=== PATIENT | female | born 1945 | race Caucasian/White ===

== ENCOUNTER → 2024-05-06 12:43 | Outpatient (REF) | payer OTHER, SELFPAY | LOC: WDC 12:43 | PROVIDERS: ATTENDING PHYSICIAN Emergency Medicine | DX: Z12.31 Encounter for screening mammogram for malignant neoplasm of breast (principal) | CPT/HCPCS: 77063; 77067 ==

== ENCOUNTER → 2024-05-19 12:57 | Outpatient (REF) | payer OTHER, SELFPAY | LOC: RAD 12:57 | PROVIDERS: ATTENDING PHYSICIAN Emergency Medicine | DX: R22.1 Localized swelling, mass and lump, neck (principal) | CPT/HCPCS: 76536 ==

== ENCOUNTER 2024-05-26 03:39 | Day surgery (SDC) | payer OTHER, SELFPAY ==
[2024-05-25 20:25] VITALS: BP 164/72
[2024-05-25 20:47] LABS: % Basophils 0.5 % (0-2); % Eosinophils 1.4 % (0-6); % Immature Granulocytes 0.3 % (0-0.5); % Lymphocytes 23.1 % (20.5-51.1); % Monocytes 6.4 % (1.7-9.3); % Neutrophils 68.3 % (42.2-75.2); Absolute Basophils 0.1 10^3/uL (0-0.2); Absolute Eosinophils 0.1 10^3/uL (0-0.7); Absolute Lymphocytes 2.2 10^3/uL (1.2-3.4); Absolute Monocytes 0.6 10^3/uL (0.1-0.6); Absolute Neutrophils 6.5 10^3/uL (1.4-6.5); Hematocrit 28.6 % (37.0-47.0); Hemoglobin 10.2 g/dL (12.0-16.0); Mean Corp Hgb Conc. 35.7 g/dL (33.0-37.0); Mean Corpuscular Hgb 31.1 pg (27.0-31.0); Mean Corpuscular Volume 87.2 fL (81.0-99.0); Nucleated Red Blood Cells % 0 %; Platelet Count 308 10^3/uL (130-400); Red Blood Cell Count 3.28 10^6/uL (4.20-5.40); Red Cell Dist. Width 12.3 % (11.5-14.5); White Blood Cell Count 9.5 10^3/uL (4.8-10.8)
[2024-05-25 21:16] LABS: ALT (SGPT) 21 U/L (0-35); AST (SGOT) 24 U/L (14-36); Albumin 4.9 g/dl (3.5-5.0); Alkaline Phosphatase 53 U/L (38-126); Blood Urea Nitrogen 24 mg/dl (7-17); Calcium 9.9 mg/dl (8.4-10.2); Carbon Dioxide 22 mmol/L (22-30); Chloride 97 mmol/L (98-107); Glucose 142 mg/dl (70-99); Potassium 3.8 mmol/L (3.5-5.1); Sodium 135 mmol/L (135-145); Total Bilirubin 0.2 mg/dl (0.2-1.3); Total Protein 7.7 g/dl (6.3-8.2); eGFR > 60.00
[2024-05-25 21:18] LABS: Lipase 391 U/L (23-300)
[2024-05-25 21:29] LABS: Troponin I < 0.012 ng/ml
[2024-05-25 22:36] VITALS: BP 201/74
[2024-05-25 22:43] VITALS: BMI 23.4
[2024-05-25 23:18] VITALS: BP 202/99
[2024-05-25] MEDS: ZOFRAN 4 MG IV (23:34)
[2024-05-25] MEDS: DILAUDID 0.5 MG IV (23:38)
--- NOTE | 2024-05-25 23:46 | ED.GENMED ---
History of Present Illness
General
Chief Complaint: Abdominal Symptoms
Source: patient
Exam Limitations: none
Time Seen by Provider: 05/25/24 22:40
History of Present Illness
History of Present Illness:
This is a 78 year old female that comes in with c/.o abd pain. States that she had pain in the chest and then down into her abd. States that that this started today. States that she also had pain up into the right blade the past day or 2. States
that this comes and goes. States that she is occasionally SOB. Denies any fever, chills, nausea, vomiting, diarrhea, headache, dizziness, urinary burning.
Past History
Past History
ED Past Medical History: Cancer (Skin Cancer), GERD, HTN, Hypercholesterolemia, NIDDM, Hypothyroidism and Other (Chronic kidney disease, Anemia. )
ED Past Surgical History: Appendectomy, Orthopedic (Right carpal tunnel with joint replacement, Left carpal tunnel, ) and Tonsilectomy
Social History
Tobacco: Former smoker
Alcohol: Occasional
Personal:
Living: with family
Review of Systems
Review of Systems
All Other Systems: ROS reviewed and negative except as documented in HPI and ROS
Constitutional: Reports no symptoms; Denies fever or chills
EENT: Reports no symptoms
Respiratory: Reports trouble breathing (occasional); Denies cough
Cardiac: Reports chest pain (abd pain that goes up into her chest)
ABD/GI: Reports abdominal pain; Denies nausea, vomiting or diarrhea
: Reports no symptoms; Denies dysuria, frequency or urgency
Musculoskeletal: Reports no symptoms
Skin: Reports no symptoms
Neurological: Reports no symptoms; Denies dizzy or headache
Psychiatric: Reports no symptoms
Phy Exam
General Physical Exam
General Presentation: mild distress
General age: appears stated age
General Skin: warm and dry
General Habitus: elderly
General Mental: alert
General Hydration: dry mucous membranes
ENT Exam
ENT Exam: TM's normal, pharynx normal and neck supple
Eye Exam
Eye Exam: EOMI
Cardiovascular Exam
Cardiovascular Exam: regular rate/rhythm, no edema, no murmur and normal peripheral pulses
Pulmonary Exam
Pulmonary Exam: lungs clear, no respiratory distress, no rales, chest non tender, no crackles, no rhonchi, no wheezing and no cough
Gastrointestinal Exam
Gastrointestinal Exam: normal bowel sounds, soft, no organomegaly, no pulsatile mass, non distended and tender (Epigastric and right sided upper abd tenderness with palpation)
Musculoskeletal Exam
Musculoskeletal Exam: full ROM and no edema
Skin Exam
Skin Exam: normal color, warm/dry, no rash and no petechia
Psychiatric Exam
Psychiatric Exam: normal mood/affect
Course
Orders/Labs/Results
Orders:
Orders
05/25/24 20:18
Electrocardiogram (*1) Urgent
Reason for Study: Chest Pain
EKG- Treatment ONCE
05/25/24 20:35
Alcohol Urgent
Complete Blood Count/With Diff Urgent
Comprehensive Metabolic Panel Urgent
Lipase Urgent
Troponin I Urgent
05/25/24 23:24
HYDROmorphone [Dilaudid] 0.5 mg .ROUTE .STK-MED ONE
Ondansetron Injectable [Zofran] 4 mg .ROUTE .STK-MED ONE
05/25/24 23:33
Ondansetron Injectable [Zofran] 4 mg IV NOW STA
05/25/24 23:37
HYDROmorphone [Dilaudid] 0.5 mg IV NOW STA
05/25/24 23:48
Pantoprazole [Protonix IV] 40 mg IV NOW STA
05/25/24 23:51
Add On- LAB Urgent
Tests Added?: alcohol
05/26/24 00:00
US Abdomen Complete/Upper Urgent
Reason For Exam: Epigastric and right upper quardent pain
Abnormal Lab Results
05/25/24
20:35
RBC 3.28 L 10^6/uL
(4.20-5.40)
Hgb 10.2 L g/dL
(12.0-16.0)
Hct 28.6 L %
(37.0-47.0)
MCH 31.1 H pg
(27.0-31.0)
Chloride 97 L mmol/L
(98-107)
BUN 24 H mg/dl
(7-17)
Glucose 142 H mg/dl
(70-99)
Lipase 391 H U/L
(23-300)
05/25/24 20:35
05/25/24 20:35
H/H low. Chloride slightly low. Dehydration. Hyperglycemia. Lipase elevation (early pancreatitis) Troponin<0.012, Lipase 391, alcohol negative
Vital Signs
Initial and Last Documented VS:
Initial Vital Signs
Temp Pulse Resp BP Pulse Ox
97.8 F 84 20 164/72 97
05/25/24 20:25 05/25/24 20:25 05/25/24 20:25 05/25/24 20:25 05/25/24 20:25
Last Documented Vital Signs
Temp Pulse Resp BP Pulse Ox
97.8 F 83 17 118/102 92
05/25/24 20:25 05/26/24 01:30 05/26/24 01:30 05/26/24 00:30 05/26/24 01:30
MDM/Problems Addressed
Differential Diagnosis Includes:
Pancreatitis, Gallbladder disease
MDM/Problems Addressed:
This is a 78 year old female that comes in with c/o upper abd pain. States that this started today and over the past 1-2 days she also has had pain in her right shoulder blade.
Will get labs, US and medicate for pain.
[place] [facility] [place] States that she still has pain but the pain medication did help some. Reviewed US with patient. Patient remains very tender with palpation. Will admit for abd pain, early pancreatitis.
Chronic conditions affecting care: DM
Acute Exacerbation and/or Progression of Chronic Illness: DM
*Radiology
Radiology exam reviewed: radiology read reviewed (US night hawk- Moderately distended gallbladder without gallstones or sludge. Nonspecific mild gallbladder wall thickening of 4mm. Negative Norman's sign. NO biliary ductal dilation. Liver and
pancreas with course echotexture. No focal lesion. No free fluid. Left kidney with known peripelvic cysts ) and other (US cont- although superimposed hydronephrosis cannot be excluded. Right kidney without hydronephrosis. )
*Pulse Oximetry
Patient hypoxic: no
*EKG
Interpreted by ED Provider?: Yes
Heart Rate: 85
Rate: normal
Rhythm: sinus
Sweeny: normal axis
Interval: normal interval
QRS Pattern: normal QRS
Ischemia: no ischemia
*Home Visitor Interpretation
Rate: normal
Heart Rate: 92
Rhythm: sinus
*Critical Care Note
Total Time (30-74mins, 75-104mins- exclusive of procedures): Not Applicable
ED Attending Note
-
Portions of this chart may have been created with voice recognition software.� Occasional wrong word or��sound alike� substitutions may have occurred due to the inherent limitations of voice recognition software.
Discharge Plan
Departure
Patient Disposition: Admit
Date of Disposition: 05/26/24
Time of Disposition: 02:21
Admit to: Med/Surg
Presentation/result/management discussed w/ accepting MD/DO: Hospitalist
Patient with high blood pressure during this ER visit?: Yes
Condition: Good
Covid-19: Not Applicable
Discharge Problem:
Abdominal pain, Pancreatitis
Prescriptions:
No Action
Vitamin D3
1 tab PO .4XPER WEEK
Rx Instructions:
doesn't know mg
atorvastatin
1 tab PO HS
Rx Instructions:
doesn't know mg
levothyroxine
1 tab PO DAILY
Rx Instructions:
doesn't know mg
lisinopril
1 tab PO DAILY
Rx Instructions:
doesn't know mg
metformin
1 tab PO DAILY
Rx Instructions:
doesn't know mg
omeprazole
1 tab PO DAILY
Rx Instructions:
doesn't know mg
sertraline
1 tab PO DAILY
Rx Instructions:
doesn't know mg
vitamin S77-apttx acid
1 cap PO DAILY
Referrals:
Jonelle Sullivan MD [Family Provider] -
Interventions
Interventions:
*Risk Screen - Suicide Last Done: 05/25/24 20:22
*General Assessment Last Done: 05/25/24 22:39
*Neglect/Abuse Screening Last Done: 05/25/24 20:22
ED- Fall Risk Assessment Last Done: 05/25/24 22:39
GT-Qaqthz-Qbapyzerze Assessment Last Done: 05/25/24 23:15
Discharge Date and Time
Print Language: LATVIAN
[2024-05-26] VITALS (19 sets, daily range): BP systolic 99–168; BP diastolic 56–107; BMI 23.8
[2024-05-26] MEDS: PROTONIX IV 40 MG IV ×2 (00:35→07:41)
[2024-05-26 01:05] LABS: Alcohol None Detected
--- NOTE | 2024-05-26 03:06 | HPS.HSE ---
Family Physician
-
Family Physician: Jonelle Sullivan MD
Chief Complaint
-
Abd Pain
History of Present Illness
Patient is an 78y F with PMH significant for hypertension, DM-II and CKD who presents to ED complaining of abdominal pain. Patient states that she has been having R shoulder pain / discomfort off-and-on for the past week or so. Today she
developed epigastric discomfort around 3 PM. She denies any associated N/V, diaphoresis, fevers / chills, etc. No changes in bowels, bloody stools, etc.
Patient denies any prior history of similar symptoms.
Patient states that the pain is in the epigastric area and radiates to the R. Pain also radiates through to the back.
Medical History
Past Medical History
Past Medical History: Reports Other
Additional Past Medical History:
Hypertension
DM-II
CKD III
Anemia of Chronic Disease
Anxiety / Depression
GERD
Hypothyroidism
Past Surgical History: Reports Other
Additional Past Surgical History:
Laminectomy
Right Hand Surgery
Trigger Finger Repairs
Social History
Tobacco: Former Smoker (Quit smoking about 10 years ago. > 40 pack years total use.)
Alcohol: Occasional (About 5-6 drinks per week on average.)
Drug: None
Family History
Family History: Not pertinent
Allergies / Home Medications
Allergies reflects when Allergies were last updated in [facility].
Home Medications with original date entered in [facility]
Allergy/Medication List:
Allergies
Allergy/AdvReac Type Severity Reaction Status Date / Time
NKA - No Known Allergies Allergy - Uncoded 05/25/24 20:23
Home Medications
Vitamin D3 1 tab PO .4XPER WEEK 05/26/24
atorvastatin 1 tab PO HS 05/26/24
levothyroxine 1 tab PO DAILY 05/26/24
lisinopril 1 tab PO DAILY 05/26/24
metformin 1 tab PO DAILY 05/26/24
omeprazole 1 tab PO DAILY 05/26/24
sertraline 1 tab PO DAILY 05/26/24
vitamin P81-uolfq acid 1 cap PO DAILY 05/26/24
Needs formal med rec as patient does not know doses.
Review of Systems
-
History Source: Patient
A 12 point ROS was completed and negative except as noted: Yes
Constitutional: Denies Fever or Chills
EENT: Denies Sore Throat
Respiratory: Denies Cough or Trouble Breathing
Cardiac: Denies Chest Pain or Palpitations
Abdomen/GI: Reports Abdominal Pain; Denies Nausea, Vomiting, Diarrhea, Constipated, Bloody Stools or Black Stools
: Denies Dysuria, Frequency or Flank Pain
Musculoskeletal: Reports Joint Pain (R Shoulder Pain); Denies Edema
Neurological: Denies Dizzy or Headache
Physical Exam
Vital Signs
Vital Signs
Temp Pulse Resp BP Pulse Ox
97.8 F 82 16 167/71 94
05/25/24 20:25 05/26/24 02:45 05/26/24 02:45 05/26/24 02:30 05/26/24 02:45
Physical Exam
General: Other (78y F in no acute distress.)
HEENT: Moist mucous membranes and PERRLA
Respiratory: Clear; No Wheezes, Rales or Rhonchi
Cardiac: S1/S2, Regular Rhythm and Murmur (II/ DONNA)
GI: Other (Abdomen is soft, Pos epigastric and RUQ tenderness with voluntary guarding. Pos BS.)
Musculoskeletal: No Clubbing, No Cyanosis and No Edema
Neuro: AO x 3
Laboratory Results
-
05/25/24 20:35
05/25/24 20:35
Laboratory Results
Total Bilirubin 0.2 mg/dl (0.2-1.3) 05/25/24 20:35
AST 24 U/L (14-36) 05/25/24 20:35
ALT 21 U/L (0-35) 05/25/24 20:35
Alkaline Phosphatase 53 U/L (38-126) 05/25/24 20:35
Troponin I < 0.012 ng/ml 05/25/24 20:35
Lipase 391 U/L (23-300) H 05/25/24 20:35
Impression/Plan
-
A/P: Patient is an 78y F with PMH significant for HTN, DM-II and CKD who presents to ED complaining of abdominal pain.
Abdominal Pain
- Observe overnight for further evaluation and treatment.
- Mild elevation in lipase - without N/V, etc.
- ? early or mild pancreatitis - does drink most days but alcohol level in ED is undetectable.
- Given R shoulder discomfort and wall thickening / distention of GB noted on US - will check HIDA to rule out cholecystitis.
- NPO, IVF, supportive care.
- Follow for any new / worsening symptoms.
- Consider GI v Surgical evaluation depending on clinical course / results of HIDA scan.
Benign Hypertension
- Stable. Holding meds acutely.
- Resume usual regimen after formal med rec.
DM-II
- Hold PO metformin acutely.
- Follow glucose and cover with SSI as needed.
- Update A1C.
CKD III
Anemia of CKD
- Stable. Renal function unremarkable.
- Follow H&H / labs for any changes.
GERD
- IV PPI for now.
Hypothyroidism
- Resume T4 supplementation once dosing has been confirmed.
DVT Prophylaxis: SCDs
Code Status: Full
[2024-05-26] MEDS: LR 1000 IV ×2 (04:20→19:09)
[2024-05-26] MEDS: DILAUDID 0.5 MG IV (04:54)
[2024-05-26] MEDS: ZOFRAN 4 MG IV (05:09)
[2024-05-26 05:17] LABS: Hematocrit 27.9 % (37.0-47.0); Hemoglobin 9.9 g/dL (12.0-16.0); Mean Corp Hgb Conc. 35.5 g/dL (33.0-37.0); Mean Corpuscular Hgb 30.8 pg (27.0-31.0); Mean Corpuscular Volume 86.9 fL (81.0-99.0); Mean Platelet Volume 8.1 fL (7.4-10.4); Platelet Count 303 10^3/uL (130-400); Red Blood Cell Count 3.21 10^6/uL (4.20-5.40); Red Cell Dist. Width 12.2 % (11.5-14.5); White Blood Cell Count 12.4 10^3/uL (4.8-10.8)
[2024-05-26 05:44] LABS: ALT (SGPT) 20 U/L (0-35); AST (SGOT) 24 U/L (14-36); Albumin 4.6 g/dl (3.5-5.0); Alkaline Phosphatase 49 U/L (38-126); Blood Urea Nitrogen 23 mg/dl (7-17); Calcium 9.7 mg/dl (8.4-10.2); Carbon Dioxide 21 mmol/L (22-30); Chloride 98 mmol/L (98-107); Direct Bilirubin 0.1 mg/dl (0.0-0.4); Estimated Creatinine Clearance 46 ml/min; Glucose 132 mg/dl (70-99); Potassium 4.2 mmol/L (3.5-5.1); Sodium 134 mmol/L (135-145); Total Bilirubin 0.3 mg/dl (0.2-1.3); Total Protein 7.4 g/dl (6.3-8.2); eGFR > 60.00
[2024-05-26] MEDS: NSS (PRESERVATIVE FREE) 10 ML IV (07:43)
[2024-05-26 10:56] LABS: Glycohemoglobin (HgbA1c) 5.8 % (4.0-5.6)
--- NOTE | 2024-05-26 11:59 | PTCARENOTE ---
1155 Called to Nuc med to give Morphine to this patient. Order confirmed, patient identified, allergies confirmed. VS pre BP 143/72 P 75 R 16 Pox 94% RA. Mso4 2mg given IV @ 1158. Patient denies complaints. VS @ 1200 BP 146/72 P 77 R 14 Pox 95%
room air. Patient in the care of nuclear medicine staff
[2024-05-26 13:00] LABS: Glucose - Point of Care 118 mg/dl (70-99)
[2024-05-26] MEDS: ASPIR LOW (ENTERIC COATED) 81 MG PO (13:23)
--- NOTE | 2024-05-26 13:43 | W.PN.HOSP.TC ---
Today's Communication/Plan
-
IV abx, IVF
Surgery consulted
F/u cultures
Assessment / Plan
Assessment / Plan
Physical Exam
General: Other (78y F in no acute distress.)
HEENT: Moist mucous membranes and PERRLA
Respiratory: Clear; No Wheezes, Rales or Rhonchi
Cardiac: S1/S2, Regular Rhythm and Murmur (II/ DONNA)
GI: Other (Abdomen is soft, Pos epigastric and RUQ tenderness with voluntary guarding. Pos BS.)
Musculoskeletal: No Clubbing, No Cyanosis and No Edema
Neuro: AO x 3
A/P: Patient is an 78y F with PMH significant for HTN, DM-II and CKD who presents to ED complaining of abdominal pain.
Abdominal Pain
Acute cholecystitis
Sepsis (Elevated WBC, RR, Pulse, source)
-HIDA scan positive
� Initiate antibiotics
- NPO, IVF, supportive care.
� Surgery consulted
Benign Hypertension
- Stable. Holding meds acutely.
Hyponatremia
� Continue to monitor
DM-II
- Hold PO metformin acutely.
- Follow glucose and cover with SSI as needed.
- Update A1C.
CKD III
Anemia of CKD
- Stable. Renal function unremarkable.
- Follow H&H / labs for any changes.
GERD
- IV PPI for now.
Hypothyroidism
- Resume T4 supplementation
DVT Prophylaxis: HSQ
Code Status: Full
Anticipated Discharge: > 48 hours
Subjective/Interval History
-
Date of Service: May 26, 2024
She will have abdominal pain
Objective Data
-
Labs:
Laboratory Results
05/26/24 05/26/24
05:01 05:02
WBC 12.4 H
Hgb 9.9 L
Hct 27.9 L
Plt Count 303
Sodium 134 L
Potassium 4.2
Chloride 98
Carbon Dioxide 21 L
BUN 23 H
Creatinine 0.7
Glucose 132 H
Calcium 9.7
Total Bilirubin 0.3
AST 24
ALT 20
Alkaline Phosphatase 49
Vital Signs:
Vital Signs
Temp Pulse Resp BP Pulse Ox
98.2 F 77 16 138/59 95
05/26/24 07:44 05/26/24 07:44 05/26/24 07:44 05/26/24 07:44 05/26/24 07:44
Review of Systems
-
History Source: Patient
All other systems: Not reviewed unless documented
--- NOTE | 2024-05-26 14:57 | CON.GS ---
Consultation
-
Requesting Provider: Du
Performing Provider: Keira
Reason for Consultation: Abd pain
Medical History
-
Chief Complaint: Abd pain
History of Present Illness:
78F p/w acute onset upper abdominal pain that began yesterday about 3PM after grocery shopping. Denies eating anything unusual over the past few days. The ab pain was preceded by intermittent mild right shoulder pain. The pain was initially in the
upper abdomen and then shifted to the lower abdomen. She notes it seems to radiate to her right side and intermittently to her back. She denies f/c/n/v. Denies changes to urine or stool. Never had this pain before. Presently reports her pain has
improved significantly and she hasn't required pain medicine since yesterday. She denies pain during the HIDA scan.
Past Medical History
Past Medical History: Other (Hypertension DM-II CKD III Anemia of Chronic Disease Anxiety / Depression GERD Hypothyroidism)
Past Surgical History: Other (Laminectomy Right Hand Surgery Trigger Finger Repairs)
Social History
Tobacco: Non-Smoker
Alcohol: Occasional
Drug: None
Personal:
Living: With Family
Family History
Family History: Reviewed & Noncontributory
Allergies / Home Medications
Allergy/AdvReac Type Severity Reaction Status Date / Time
No Known Allergies Allergy Unverified 05/26/24 13:28
�Medication �Instructions �Recorded �Confirmed �Type
alprazolam 0.5 mg tablet (Xanax) 0.5 mg PO HS anxiety/sleep 05/26/24 05/26/24 History
aspirin 81 mg tablet,delayed 81 mg PO DAILY Blood Clot 05/26/24 05/26/24 History
release Prevention/Tx
atorvastatin 40 mg tablet (Lipitor) 40 mg PO QPM High Cholesterol 05/26/24 05/26/24 History
cholecalciferol (vitamin D3) 25 25 mcg PO DAILY Supplement 05/26/24 05/26/24 History
mcg (1,000 unit) tablet (Vitamin
D3)
cyanocobalamin (vitamin B-12) 1,000 mcg PO DAILY Supplement 05/26/24 05/26/24 History
1,000 mcg tablet
folic acid 1 mg tablet 1 mg PO DAILY Supplement 05/26/24 05/26/24 History
levothyroxine 150 mcg tablet 150 mcg PO SUSA Thyroid 05/26/24 05/26/24 History
(Synthroid)
levothyroxine 75 mcg tablet 75 mcg PO MOTUWETHFR 05/26/24 05/26/24 History
(Synthroid)
lisinopril 10 1 tab PO DAILY Blood Pressure 05/26/24 05/26/24 History
mg-hydrochlorothiazide 12.5 mg
tablet
metformin 500 mg tablet 500 mg PO QPM Diabetes 05/26/24 05/26/24 History
omeprazole 20 mg capsule,delayed 20 mg PO DAILY Gastrointestinal 05/26/24 05/26/24 History
release Issue
sertraline 50 mg tablet 50 mg PO DAILY depression/anxiety 05/26/24 05/26/24 History
Review of Systems
-
A 10 point review of systems was completed, and was negative except as per HPI.
Physical Exam
Vital Signs
Temp Pulse Resp BP Pulse Ox
98.2 F 77 20 138/59 93
05/26/24 07:44 05/26/24 14:00 05/26/24 14:00 05/26/24 07:44 05/26/24 14:00
05/25/24 05/26/24 05/27/24
06:59 06:59 06:59
Actual Weight 54.3 kg
Body Mass Index (BMI) 23.4
Lab Results
05/26/24 05:01
05/26/24 05:02
WBC 12.4 10^3/uL (4.8-10.8) H 05/26/24 05:01
Hgb 9.9 g/dL (12.0-16.0) L 05/26/24 05:01
Hct 27.9 % (37.0-47.0) L 05/26/24 05:01
Plt Count 303 10^3/uL (130-400) 05/26/24 05:01
Abs Immat Gran (auto) 0.0 10^3/uL (0-0.05) 05/25/24 20:35
Neutrophils % 68.3 % (42.2-75.2) 05/25/24 20:35
Physical Exam
General: Well Developed, Well Nourished, No Apparent Distress and Other (non-toxic)
HEENT: Normocephalic and Anicteric
GI: Soft, Non Distended and Tender (mild ttp to epigastrium and less to the RUQ)
Skin: Warm and Dry
Neuro: AO x 3
Psych: Calm
Data Reviewed
-
Ultrasound: Image Personally Visualized and interpreted, Report Reviewed by me, Discussed with Physician, Discussed with Patient and Discussed with Family
Medical Tests (Nuc Med, Echo etc): Image Personally Visualized and interpreted, Report Reviewed by me, Discussed with Physician, Discussed with Patient and Discussed with Family
Labs: Labs Reviewed by me, Discussed with Physician, Discussed with Patient and Discussed with Family
Old Records: Reviewed
Assessment / Plan
-
78F with abdominal pain suggestive of biliary origin
Possible biliary pancreatitis (though no clear evidence of stones on US and lipase only mildly elevated)
Possible acute or acute on chronic cholecystitis (though no stones on US, negative sono Norman, normal LFTs, no GBWT nor PCF nor ductal dilation on US, the HIDA was notable for non-vis of GB)
An ambulatory independent patient living at home is unlikely to develop acalculous cholecystitis
Most likely there are gallstones/sludge that are simply not well visualized on US
Labs notable for mild leukocytosis trended up from yesterday
Clinically reports improvement and having less pain today, AFVSS
Plan:
Agree with Hospitalist admission for obs
Would cont NPO/IVF for now to allow bowel rest, sips and chips OK
Agree with empiric abx
Serial abd exams
Consider cross sectional imaging tomorrow if no improvement
She may benefit from CCY or IR drain, pending clinical course
Will follow
[2024-05-26] MEDS: ZOSYN 100 IV ×2 (15:00→21:35)
--- NOTE | 2024-05-26 16:30 | CM ---
Met with patient at the bedside in the ED, Bed 31; initial assessment completed
WEBB form explained and signed @ 1623
Pharmacy verified: [facility] @ [address] [facility]
Patient and Spouse live in a [place] w/basement; 2 steps to enter; 13 steps down to Basement; bath has walk-in shower w/grab bar; has a shower chair if needed
PLOF: reports she is independent with ambulation, stairs, and ADLs; drives; retired
NO SNF or Home Health utilization history
will transport if she is discharged to Home
Surgery consulted; DC plan to be determined pending hospital course
[2024-05-26] MEDS: HEPARIN 5000 UNITS SC ×2 (16:36→23:02)
[2024-05-26 18:47] LABS: Glucose - Point of Care 119 mg/dl (70-99)
--- NOTE | 2024-05-26 19:00 | PTCARENOTE ---
pt admitted from ED AOx3. endorses 10, abd pain. LCTA B/L on RA. abd soft, tender to palp. +bs 4 cont b&b skin sdki. no edema +pp. cb in reach
[2024-05-26] MEDS: TYLENOL 650 MG PO (20:46)
[2024-05-26] MEDS: PEPCID 20 MG PO (21:35)
[2024-05-26 22:23] LABS: Glucose - Point of Care 128 mg/dl (70-99)
[2024-05-26] MEDS: XANAX 0.5 MG PO (23:02)
[2024-05-27] VITALS (14 sets, daily range): BP systolic 127–181; BP diastolic 59–90; BMI 24.1
[2024-05-27] MEDS: ZOSYN 100 IV ×3 (02:47→16:29)
[2024-05-27 05:52] LABS: Glucose - Point of Care 122 mg/dl (70-99)
[2024-05-27] MEDS: SYNTHROID 75 MCG PO (06:00)
[2024-05-27] MEDS: LR 1000 IV ×2 (06:05→16:11)
[2024-05-27 07:16] LABS: Hematocrit 27.6 % (37.0-47.0); Hemoglobin 9.5 g/dL (12.0-16.0); Mean Corp Hgb Conc. 34.4 g/dL (33.0-37.0); Mean Corpuscular Hgb 30.8 pg (27.0-31.0); Mean Corpuscular Volume 89.6 fL (81.0-99.0); Mean Platelet Volume 8.2 fL (7.4-10.4); Platelet Count 274 10^3/uL (130-400); Red Blood Cell Count 3.08 10^6/uL (4.20-5.40); Red Cell Dist. Width 12.4 % (11.5-14.5); White Blood Cell Count 5.5 10^3/uL (4.8-10.8)
[2024-05-27 07:56] LABS: ALT (SGPT) 44 U/L (0-35); AST (SGOT) 58 U/L (14-36); Albumin 4.1 g/dl (3.5-5.0); Alkaline Phosphatase 60 U/L (38-126); Blood Urea Nitrogen 14 mg/dl (7-17); Calcium 9.3 mg/dl (8.4-10.2); Carbon Dioxide 29 mmol/L (22-30); Chloride 98 mmol/L (98-107); Estimated Creatinine Clearance 36 ml/min; Glucose 102 mg/dl (70-99); Potassium 4.1 mmol/L (3.5-5.1); Sodium 139 mmol/L (135-145); Total Bilirubin 0.8 mg/dl (0.2-1.3); Total Protein 6.7 g/dl (6.3-8.2); eGFR > 60.00
[2024-05-27 08:10] LABS: Glucose - Point of Care 111 mg/dl (70-99)
[2024-05-27] MEDS: ASPIR LOW (ENTERIC COATED) 81 MG PO (08:11)
[2024-05-27] MEDS: NSS (PRESERVATIVE FREE) 10 ML IV (08:11)
[2024-05-27] MEDS: HEPARIN 5000 UNITS SC ×2 (08:11→21:02)
[2024-05-27] MEDS: PROTONIX IV 40 MG IV (08:11)
--- NOTE | 2024-05-27 10:56 | W.PN.GS2 ---
Today's Communication / Plan
-
`
Assessment / Plan
-
Assessment: 78-year-old female with acute cholecystitis
Positive HIDA, gallbladder edema and distention on ultrasound imaging although gallstone not specifically identified
AFVSS
Patient with exquisite right upper quadrant tenderness with localized guarding rebound and positive Norman's
Advised patient that given today's examination/symptoms HIDA scan is likely a true positive confirming cholecystitis with cystic duct obstruction
I have therefore recommended pursuing cholecystectomy for definitive management. Patient and her are in agreement after our discussions.
Laparoscopic cholecystectomy with possible intraoperative cholangiogram was reviewed in detail including the operative technique utilizing a diagram and drawling, alternative treatment options, benefits and potential risks such as but not limited to
bleeding, infectious or related complications, iatrogenic injury to surrounding viscera, bile duct injury, bile leak. We discussed the typical postoperative recovery pending operative findings as well.
Plan: Patient has been added onto the OR schedule for cholecystectomy today
Continue supportive care awaiting OR availability
Subjective Data
-
Date of Service: May 27, 2024
Patient seen and examined, at bedside
She reports persistent tenderness/pain in the right upper quadrant
Appetite reduced but no nausea
Objective Data
-
Intake and Output
05/26/24 05/27/24 05/28/24
06:59 06:59 06:59
Intake Total 200 / 200
Balance 200 / 200
Intake:
IV piggybacks 200 / 200
Other:
Number of approximated MODERATE 4
amounts of urine
Vital Signs
Temp Pulse Resp BP Pulse Ox
98.5 F 68 18 151/59 98
05/27/24 07:55 05/27/24 07:55 05/27/24 07:55 05/27/24 07:55 05/27/24 09:35
Lab Results
05/27/24 06:35
05/27/24 06:35
Calcium 9.3 mg/dl (8.4-10.2) 05/27/24 06:35
Total Bilirubin 0.8 mg/dl (0.2-1.3) 05/27/24 06:35
Direct Bilirubin 0.1 mg/dl (0.0-0.4) 05/26/24 05:02
AST 58 U/L (14-36) H 05/27/24 06:35
ALT 44 U/L (0-35) H 05/27/24 06:35
Alkaline Phosphatase 60 U/L (38-126) 05/27/24 06:35
Total Protein 6.7 g/dl (6.3-8.2) 05/27/24 06:35
Albumin 4.1 g/dl (3.5-5.0) 05/27/24 06:35
Physical Exam
-
NAD AAOx3
ABD: Soft, nondistended, tenderness to palpation localizing to the right upper quadrant with voluntary guarding as well as rebound tenderness.
Positive Norman's
--- NOTE | 2024-05-27 11:58 | W.SUR.PREOP ---
Pre-Operative Surgical Note
-
I have examined this patient prior to the performance of the scheduled procedure.
The patient's condition is unchanged from the time of the current History and
Physical and the patient is able to undergo the scheduled procedure.
--- NOTE | 2024-05-27 13:05 | W.PN.HOSP.TC ---
Today's Communication/Plan
-
lap evangelist today
abx
Assessment / Plan
Assessment / Plan
Physical Exam
General: Other (78y F in no acute distress.)
HEENT: Moist mucous membranes and PERRLA
Respiratory: Clear; No Wheezes, Rales or Rhonchi
Cardiac: S1/S2, Regular Rhythm and Murmur (II/ DONNA)
GI: Other (Abdomen is soft, Pos epigastric and RUQ tenderness with voluntary guarding. Pos BS.)
Musculoskeletal: No Clubbing, No Cyanosis and No Edema
Neuro: AO x 3
A/P: Patient is an 78y F with PMH significant for HTN, DM-II and CKD who presents to ED complaining of abdominal pain.
Abdominal Pain
Acute cholecystitis
Sepsis (Elevated WBC, RR, Pulse, source)
-HIDA scan positive
� Initiate antibiotics
- NPO, IVF, supportive care.
� Surgery consulted- going for Lap Evangelist today
Benign Hypertension
- Stable. Holding meds acutely.
Hyponatremia
� Continue to monitor
DM-II
- Hold PO metformin acutely.
- Follow glucose and cover with SSI as needed.
- Update A1C.
CKD III
Anemia of CKD
- Stable. Renal function unremarkable.
- Follow H&H / labs for any changes.
GERD
- IV PPI for now.
Hypothyroidism
- Resume T4 supplementation
DVT Prophylaxis: HSQ
Code Status: Full
Total time spent on today's encounter was 50 minutes which included time spent in counseling the patient/family regarding diagnosis and treatment plan as listed above, goals of care, and symptom management. Case was discussed with nursing staff,
specialists, and care coordinators/case management. All labs and imaging personally reviewed by me. Remainder the time spent in detailed review of previous records, lab data, imaging, and other medical provider documentation.
Anticipated Discharge: Within 24 hours
Subjective/Interval History
-
Date of Service: May 27, 2024
Persistent right upper quadrant tenderness
Objective Data
-
Labs:
Laboratory Results
05/27/24
06:35
WBC 5.5
Hgb 9.5 L
Hct 27.6 L
Plt Count 274
Sodium 139
Potassium 4.1
Chloride 98
Carbon Dioxide 29
BUN 14
Creatinine 0.9
Glucose 102 H
Calcium 9.3
Total Bilirubin 0.8
AST 58 H
ALT 44 H
Alkaline Phosphatase 60
Vital Signs:
Vital Signs
Temp Pulse Resp BP Pulse Ox
98.5 F 68 18 151/59 98
05/27/24 07:55 05/27/24 07:55 05/27/24 07:55 05/27/24 07:55 05/27/24 09:35
I&O
05/26/24 05/27/24 05/28/24
06:59 06:59 06:59
Intake Total 200 / 200
Balance 200 / 200
Review of Systems
-
History Source: Patient
All other systems: Not reviewed unless documented
Data Reviewed
-
Medical Tests (Nuc Med, Echo etc): Image personally visualized and interpreted and Report Reviewed by me
Labs: Labs Reviewed by me
--- NOTE | 2024-05-27 13:46 | W.IMMPOSTOP ---
Addendum entered and electronically signed by Patrick Patel MD 05/27/24 13:56:
#[id number]
Original Note:
Surgical Immed Post Op Note
-
Primary Surgeon: Jorge
Assisting Surgeon: Sony
Pre-op Diagnosis: Acute cholecystitis
Post-op Diagnosis: Acute cholecystitis
Procedure Performed: Laparoscopic cholecystectomy
Anesthesia Type: GETA +0.25% Marcaine
Specimen / Cultures: gallbladder
Estimated Blood Loss: 6 mL
Complications: none immediate
Operative Findings: Tensely distended gallbladder with acute edema and both acute/chronic omental adhesions. Cyst needle decompression with clear, mucoid fluid indicative of hydrops/cystic duct obstruction. Cholecystectomy completed uneventfully.
Cystic duct controlled with 3 clips proximally. Cystic artery and branch to cystic duct/posterior branch controlled with hemoclips as well. Gallbladder removed intact and extracted at epigastric 12 mm trocar site.
updated postoperatively via phone call
Routine postoperative care with dietary advancement as tolerated
Would continue Zosyn initially postop but do not anticipate need for antibiotics on discharge
[2024-05-27 14:05] LABS: Glucose - Point of Care 140 mg/dl (70-99)
[2024-05-27] MEDS: ZOSYN 50 IV ×2 (14:05→20:52)
[2024-05-27] MEDS: DILAUDID 0.25 MG IV ×3 (14:16→23:52)
[2024-05-27] MEDS: LR IV (16:11)
[2024-05-27 16:32] LABS: Glucose - Point of Care 150 mg/dl (70-99)
[2024-05-27] MEDS: DILAUDID 0.5 MG IV ×2 (18:31→20:51)
[2024-05-27 21:53] LABS: Glucose - Point of Care 121 mg/dl (70-99)
--- NOTE | 2024-05-27 23:10 | PTCARENOTE ---
Pt only had a few sips of broth and tea for dinner. Pt c/o poor appetite and 7/10 RUQ pain. PRN Dilaudid given for severe pain (see MAR). IVF still hanging since pt w/ poor oral intake. Plan of care ongoing.
[2024-05-27] MEDS: XANAX PO (23:24)
[2024-05-28] MEDS: TYLENOL 650 MG PO (02:01)
[2024-05-28] MEDS: LR 1000 IV (02:01)
[2024-05-28] MEDS: ZOSYN 50 IV ×2 (02:01→09:43)
[2024-05-28] MEDS: DILAUDID 0.25 MG IV (02:52)
[2024-05-28] MEDS: SYNTHROID 75 MCG PO (05:19)
[2024-05-28 06:00] VITALS: BMI 24.1
[2024-05-28 07:41] LABS: Hematocrit 25.7 % (37.0-47.0); Mean Corpuscular Hgb 32.3 pg (27.0-31.0); Mean Corpuscular Volume 92.1 fL (81.0-99.0); Mean Platelet Volume 8.4 fL (7.4-10.4); Platelet Count 240 10^3/uL (130-400); Red Blood Cell Count 2.79 10^6/uL (4.20-5.40); Red Cell Dist. Width 12.3 % (11.5-14.5); White Blood Cell Count 8.3 10^3/uL (4.8-10.8)
[2024-05-28 07:50] LABS: ALT (SGPT) 90 U/L (0-35); AST (SGOT) 99 U/L (14-36); Albumin 3.8 g/dl (3.5-5.0); Alkaline Phosphatase 85 U/L (38-126); Blood Urea Nitrogen 12 mg/dl (7-17); Calcium 8.9 mg/dl (8.4-10.2); Carbon Dioxide 29 mmol/L (22-30); Chloride 99 mmol/L (98-107); Estimated Creatinine Clearance 32 ml/min; Glucose 99 mg/dl (70-99); Potassium 3.7 mmol/L (3.5-5.1); Sodium 137 mmol/L (135-145); Total Bilirubin 0.4 mg/dl (0.2-1.3); Total Protein 6.2 g/dl (6.3-8.2); eGFR 56.95
[2024-05-28 07:51] VITALS: BP 132/68
[2024-05-28 08:05] LABS: Glucose - Point of Care 119 mg/dl (70-99)
[2024-05-28] MEDS: PROTONIX IV 40 MG IV (09:40)
[2024-05-28] MEDS: NSS (PRESERVATIVE FREE) 10 ML IV (09:40)
[2024-05-28] MEDS: ASPIR LOW (ENTERIC COATED) 81 MG PO (09:42)
[2024-05-28] MEDS: HEPARIN 5000 UNITS SC (09:43)
[2024-05-28] MEDS: DILAUDID 0.5 MG IV (10:31)
--- NOTE | 2024-05-28 10:39 | W.PN.GS2 ---
Addendum entered and electronically signed by Freedom Torre MD 05/28/24 13:56:
Patient seen and examined.
No major complaints. Does report some abdominal discomfort, well-controlled with medications. No nausea or vomiting. Passing flatus. No fevers. Minimal ambulation.
Gen: NAD
Abd: soft, tender in RIGHt abdomen, ND, non-peritoneal, incisions /d/i - no erythema, ecchymosis or drainage
Patient is a 78-year-old F with acute cholecystitis.
POD #1 Lap Ciera; Tensely distended gallbladder with acute edema and both acute/chronic omental adhesions noted intraop
AFVSS
Doing well post operatively
No leukocytosis. Bilirubin normal
Plan:
-- Advance to low fat/ada diet as tolerated
-- Transition to PO analgesics, IV for breakthrough pain
-- OOB/Ambulate
-- Would continue Zosyn initially postop but do not anticipate need for antibiotics on discharge
-- Medical management as per primary team
--OK for DC from surgical perspective
Original Note:
Today's Communication / Plan
-
Advance diet
Pain management
Assessment / Plan
-
Assessment: 78-year-old female with acute cholecystitis. Positive HIDA, gallbladder edema and distention on ultrasound imaging although gallstone not specifically identified
Blood cx NGTD
POD #1 Lap Ciera; Tensely distended gallbladder with acute edema and both acute/chronic omental adhesions noted intraop
AFVSS
Doing well post operatively
No leukocytosis. Bilirubin normal
Plan:
Advance to low fat/ada diet as tolerated
Transition to PO analgesics, IV for breakthrough pain
OOB/Ambulate
Would continue Zosyn initially postop but do not anticipate need for antibiotics on discharge
Medical management as per primary team
Subjective Data
-
Date of Service: May 28, 2024
Patient seen and examined at bedside. Denies n/v. Passing flatus and had a BM today. Poor appetite. Pain overnight and tenderness to the RUQ/incisions.
Objective Data
-
Intake and Output
05/27/24 05/28/24 05/29/24
06:59 06:59 06:59
Intake Total 200 / 200 750 / 750
Balance 200 / 200 750 / 750
Intake:
Oral fluids 500 / 500
IV fluids (Total) 150 / 150
NSS 150 / 150
IV piggybacks 200 / 200 100 / 100
Other:
Number of approximated SMALL 1
amounts of urine
Number of approximated MODERATE 4 1
amounts of urine
Vital Signs
Temp Pulse Resp BP Pulse Ox
99.7 F 85 16 132/68 94
05/28/24 07:51 05/28/24 07:51 05/28/24 07:51 05/28/24 07:51 05/28/24 07:51
Lab Results
05/28/24 06:29
05/28/24 06:29
Calcium 8.9 mg/dl (8.4-10.2) 05/28/24 06:29
Total Bilirubin 0.4 mg/dl (0.2-1.3) 05/28/24 06:29
Direct Bilirubin 0.1 mg/dl (0.0-0.4) 05/26/24 05:02
AST 99 U/L (14-36) H 05/28/24 06:29
ALT 90 U/L (0-35) H 05/28/24 06:29
Alkaline Phosphatase 85 U/L (38-126) 05/28/24 06:29
Total Protein 6.2 g/dl (6.3-8.2) L 05/28/24 06:29
Albumin 3.8 g/dl (3.5-5.0) 05/28/24 06:29
Physical Exam
-
NAD AAOx3
ABD: Soft, nondistended, tenderness to RUQ and incisions
Incisions clear, dry, well approximated
[2024-05-28 12:05] LABS: Glucose - Point of Care 114 mg/dl (70-99)
--- NOTE | 2024-05-28 12:57 | CM ---
Reviewed chart, patient had sx yesterday. May need skilled-will watch for needs.
Plan: Case management will continue to follow and assist with discharge planning. Home vrs SNF at discharge.
[2024-05-28] MEDS: ULTRAM 50 MG PO (13:22)
--- NOTE | 2024-05-28 13:37 | W.PN.HOSP.TC ---
Addendum entered and electronically signed by Austen Sandy MD 05/29/24 16:52:
[id number]
Original Note:
Today's Communication/Plan
-
low fat diet
can dc abx upon dc
f/u cbc, cmp outpatient
f/u gen surg, pcp outpatient
Assessment / Plan
Assessment / Plan
Physical Exam
General: Other (78y F in no acute distress.)
HEENT: Moist mucous membranes and PERRLA
Respiratory: Clear; No Wheezes, Rales or Rhonchi
Cardiac: S1/S2, Regular Rhythm and Murmur (II/ DONNA)
GI: ABD: Soft, nondistended, tenderness to RUQ and incisions
Musculoskeletal: No Clubbing, No Cyanosis and No Edema
Neuro: AO x 3
A/P: Patient is an 78y F with PMH significant for HTN, DM-II and CKD who presents to ED complaining of abdominal pain.
Abdominal Pain
Acute cholecystitis
Sepsis (Elevated WBC, RR, Pulse, source)
-HIDA scan positive
-Lap Ciera 05/27
-adv to [facility]
� antibiotics - can dc upon dc
- If able to tolerate diet - can dc today
-f/u cmp outpatient
Benign Hypertension
- Stable. Holding meds acutely.
Hyponatremia
� Continue to monitor
DM-II
- Hold PO metformin acutely.
- Follow glucose and cover with SSI as needed.
- Update A1C.
CKD III
Anemia of CKD
- Stable. Renal function unremarkable.
- Follow H&H / labs for any changes.
-f/u cbc outpatient
GERD
- ppi
Hypothyroidism
- Resume T4 supplementation
DVT Prophylaxis: HSQ
Code Status: Full
More than 30 minutes spent in discharge including
Final examination of the patient
Summarizing hospital stay
Instructions for continuing care to all relevant caregivers
Preparation of discharge records, prescriptions, and referral forms
Total time spent (35 in minutes):
Anticipated Discharge: Today
Subjective/Interval History
-
Date of Service: May 28, 2024
no acute events; tolerating cld - adv diet
Objective Data
-
Labs:
Laboratory Results
05/28/24
06:29
WBC 8.3
Hgb 9.0 L
Hct 25.7 L
Plt Count 240
Sodium 137
Potassium 3.7
Chloride 99
Carbon Dioxide 29
BUN 12
Creatinine 1.0
Glucose 99
Calcium 8.9
Total Bilirubin 0.4
AST 99 H
ALT 90 H
Alkaline Phosphatase 85
Vital Signs:
Vital Signs
Temp Pulse Resp BP Pulse Ox
99.7 F 85 16 132/68 94
05/28/24 07:51 05/28/24 07:51 05/28/24 07:51 05/28/24 07:51 05/28/24 07:51
I&O
05/27/24 05/28/24 05/29/24
06:59 06:59 06:59
Intake Total 200 / 200 750 / 750
Balance 200 / 200 750 / 750
Review of Systems
-
History Source: Patient
All other systems: Not reviewed unless documented
Data Reviewed
-
Medical Tests (Nuc Med, Echo etc): Image personally visualized and interpreted and Report Reviewed by me
Labs: Labs Reviewed by me
--- NOTE | 2024-05-28 13:47 | W.DS.TRANS ---
DC Summary - Command Center Officer
-
Discharge Instructions:
Discharge Diagnosis/Procedures acute cholecystitis
Diet Low Fat,Low Cholesterol,Diabetic, Carb
Controlled
Activity As tolerated
Blood Work cbc, cmp in 3-5 days
Instructions:
Stand-Alone Forms:
Changes to Home Medications: Yes
Discharge Medications:
DC Medications w/original date entered in [facility]
alprazolam 0.5 mg tablet (Xanax) 0.5 mg PO HS anxiety/sleep 05/26/24
aspirin 81 mg tablet,delayed release 81 mg PO DAILY Blood Clot Prevention/Tx 05/26/24
atorvastatin 40 mg tablet (Lipitor) 40 mg PO QPM High Cholesterol 05/26/24
cholecalciferol (vitamin D3) 25 mcg (1,000 unit) tablet (Vitamin D3) 25 mcg PO DAILY Supplement 05/26/24
cyanocobalamin (vitamin B-12) 1,000 mcg tablet 1,000 mcg PO DAILY Supplement 05/26/24
folic acid 1 mg tablet 1 mg PO DAILY Supplement 05/26/24
levothyroxine 150 mcg tablet (Synthroid) 150 mcg PO SUSA Thyroid 05/26/24
levothyroxine 75 mcg tablet (Synthroid) 75 mcg PO MOTUWETHFR Thyroid 05/26/24
lisinopril 10 mg-hydrochlorothiazide 12.5 mg tablet 1 tab PO DAILY Blood Pressure 05/26/24
metformin 500 mg tablet 500 mg PO QPM Diabetes 05/26/24
omeprazole 20 mg capsule,delayed release 20 mg PO DAILY Gastrointestinal Issue 05/26/24
sertraline 50 mg tablet 50 mg PO DAILY depression/anxiety 05/26/24
acetaminophen 325 mg tablet 650 mg (2 x 325 mg) PO Q4HPRN PRN Mild Pain / Temp > 101 #90 tabs 05/28/24
Home Medication Changes
acetaminophen 325 mg tablet 650 mg (2 x 325 mg) PO Q4HPRN PRN Mild Pain / Temp > 101 #90 tabs 05/28/24
Pending Results: No
--- NOTE | 2024-05-28 14:24 | CM ---
Reviewed chart, patient is ready for discharge. Reviewed IMM. Patient's spouse signed. Patient stated that she does not feel she is ready for discharge as she is still in pain. Explanation was provided that she has right to appeal. Both patient and
spouse expressed understanding.
Plan: Case management will continue to follow and assist with discharge planning. Patient's spouse will bring patient home.
[2024-05-28] MEDS: ZOSYN IV (15:16)
[2024-05-28 15:32] VITALS: BP 130/64
[2024-05-28 15:38] VITALS: BP 199/99
== END 2024-05-28 16:00 | disposition home or self-care (01) ==
LOC: PACU 03:39
PROVIDERS: Hospitalist; Internal Medicine; Student in an Organized Health Care Education/Training Program; CONSULT PHYSICIAN Surgery; EMERGENCY PHYSICIAN Student in an Organized Health Care Education/Training Program; FAMILY PHYSICIAN Emergency Medicine
DX: K80.13 Calculus of gallbladder with acute and chronic cholecystitis with obstruction (principal); K82.1 Hydrops of gallbladder; I12.9 Hypertensive chronic kidney disease with stage 1 through stage 4 chronic kidney disease, or unspecified chronic kidney disease; E11.22 Type 2 diabetes mellitus with diabetic chronic kidney disease; N18.30 Chronic kidney disease, stage 3 unspecified; D63.1 Anemia in chronic kidney disease; K21.9 Gastro-esophageal reflux disease without esophagitis; E03.9 Hypothyroidism, unspecified; E87.1 Hypo-osmolality and hyponatremia
CPT/HCPCS: 47562; 88304; 76700; 78226; 80053; 82077; 82248; 82962; 83036; 83690; 84484; 85025; 85027; 87040; 93005; 99406; A9537; G0378

== ENCOUNTER → 2024-09-01 10:53 | Outpatient (REF) | payer OTHER, SELFPAY | LOC: RAD 10:53 | PROVIDERS: ATTENDING PHYSICIAN Otolaryngology; FAMILY PHYSICIAN Emergency Medicine | DX: R22.1 Localized swelling, mass and lump, neck (principal) | CPT/HCPCS: 70491; Q9967 ==